=== PATIENT | male | born 1955 | race Caucasian/White ===

== ENCOUNTER 2020-11-05 09:16 | Emergency (ER) | payer OTHER, SELFPAY ==
--- NOTE | ~2020-11-05 | XR_ITS ---
EXAMINATION: XR chest 2V EXAM DATE: 11/05/2020 09:51 INDICATION: cough, sob x 3 days wheezing. TECHNIQUE: Frontal and lateral projections of the chest obtained and reviewed. There is no prior isaak dy for comparison. FINDINGS: Small amount of left basilar atelectasis. The lungs are otherwise clear. There are no ple ural effusions. The cardiomediastinal silhouette is within normal limits. There is no pneumothorax suspected. The bones and soft tissues are unremarkable. IMPRESSION: Small amount of left basilar atelectasis. Reviewed, dictated and finalized at location A.
[2020-11-05 09:30] VITALS: BP 148/85; PULSE 100; RESP 24; TEMP 36.7; O2SAT 100; O2SAT 99
--- NOTE | 2020-11-05 09:40 | ED.URI ---
HPI - URI/Sore Throat General Chief Complaint: Upper Respiratory Infection Stated Complaint: cough causing trouble breathing Time Seen by Provider: 11/05/20 10:00 Source: patient and RN notes reviewed Mode of arrival: ambulatory Limitations: no limitations History of Present Illness HPI Narrative: 65-year-old male presents with concern for ongoing cough, recent onset of shortness of breath. Reports he has been coughing for approximately 3 months. Reports the symptoms started 3 months ago with an upper respiratory infection which the upper respiratory symptoms have since resolved, however the cough has not. Reports within the last 3 days he noticed wheezing and shortness of breath. Reports he eases shortness of breath by sitting up at a table rather than lying in bed. Reports he has no shortness of breath when resting in a sitting position, however activity and certain positions lying flat caused him to be short of breath. He denies any history of lung problems, asthma, COPD. Reports he is a smoker, 1 pack/day for 30 years. He denies chest pain, diaphoresis, nausea, vomiting. Denies loss of sense of taste or smell. Denies any known Covid infection, influenza. MD elicited complaint: cough Related Data Allergies Allergy/AdvReac Type Severity Reaction Status Date / Time No Known Allergies Allergy Verified 11/05/20 09:44 Review of Systems Review of Systems: Narrative: CONSTITUTIONAL: Denies malaise, chills, sweats, or fever. EYES: Denies visual changes, redness, or discharge. ENT: Denies rhinorrhea, congestion, sinus pain, otalgia and sore throat. CARDIOVASCULAR: Denies chest pain, palpitations, or edema. RESPIRATORY: Reports cough, wheezing, dyspnea. GASTROINTESTINAL: Denies abdominal pain, nausea, vomiting, diarrhea SKIN: Denies rash or itching. MUSCULOSKELETAL: Denies myalgia. NEUROLOGIC: Denies headache. All systems reviewed & are unremarkable except as noted in HPI and below PMFSH Comments At time of signature, agree with nursing past medical, surgical, social and family history. There is no relevant family history pertinent to the presenting complaint Exam Narrative: Exam Narrative: GENERAL: Well-appearing, well-nourished, and in no acute distress. HEAD: Normocephalic EYES: PERRLA, conjunctivae clear ENT: Nares clear, turbinates, no discharge. Mucous membranes moist. TM pearly vieyra with dull light reflex bilaterally; no tragal tenderness. Oropharynx not erythematous without lesions. Tonsils not enlarged and without exudate, no drooling, no hoarseness, no trismus, uvula midline. NECK: Supple. No lymphadenopathy CHEST: Clear to auscultation, breath sounds equal. No wheezing, rhonchi, rales, or stridor. No respiratory distress, speaks in full sentences. HEART: Regular rate and rhythm. No murmur heard. SKIN: Warm, dry, no rash. NEURO: Alert and oriented x3. PSYCH: Normal mood and affect Course Course Emergency Course: Patient is aware of diagnosis, understands and agrees to treatment plan. Anticipatory guidance given. Patient agrees to follow-up as directed and is aware of reasons to seek care at the emergency department. Portions of this record may have been created with voice recognition software Vital Signs Vital signs: Vital Signs Temperature 98.1 F 11/05/20 09:30 Pulse Rate 100 11/05/20 09:30 Respiratory Rate 24 H 11/05/20 09:30 Blood Pressure 148/85 H 11/05/20 09:30 Pulse Oximetry 99 11/05/20 09:30 Temperature 98.1 F 11/05/20 09:57 Pulse Rate 100 11/05/20 09:57 Respiratory Rate 24 H 11/05/20 09:57 Blood Pressure 148/85 H 11/05/20 09:57 Pulse Oximetry 99 11/05/20 09:57 Reviewed. Pt has been instructed to follow up with his primary care provider within the next week regarding his elevated blood pressure today. MDM - URI/Sore Throat MDM Narrative Medical decision making narrative: Differential diagnosis considered: Taylor virus, strep pharyngitis, allergic rhinitis, upper respiratory
[2020-11-05 09:57] VITALS: BP 148/85; PULSE 100; RESP 24; TEMP 36.7; O2SAT 99
--- NOTE | 2020-11-05 10:34 | ECG_ITS ---
Measurements Intervals [place] Rate: 106 P: 65 [place]: 128 QRS: -13 QRSD: 90 T: 69 QT: 331 QTc: 440 Interpretive Statements SINUS TACHYCARDIA INCOMPLETE RIGHT BUNDLE BRANCH BLOCK BASELINE ARTIFACT- AVR, AVL, AVF, V4-V5 ABNORMAL ECG Electronically Signed On 11-05-2020 11:27:48 CDT by Eliseo Bennett D.O.
== END 2020-11-05 10:50 | disposition home or self-care (01) ==
PROVIDERS: Emergency Provider Nurse Practitioner
DX: R05 Cough (principal); R06.02 Shortness of breath; J98.11 Atelectasis; F17.219 Nicotine dependence, cigarettes, with unspecified nicotine-induced disorders
CPT/HCPCS: 71046; 93005; 99213; G0463

== ENCOUNTER 2020-11-19 09:19 | Emergency (ER) | payer OTHER, SELFPAY ==
--- NOTE | ~2020-11-19 | XR_ITS ---
EXAMINATION: XR chest 1V portable INDICATION: Shortness of breath and chills TECHNIQUE: Portable AP chest at 0955 hours COMPARISON: 11/05/2020 FINDINGS: There are minimal opacities of the lung bases and right midlung zone. There is no pleural e ffusion or pneumothorax. The cardiomediastinal silhouette is normal. The visualized osseous structure s are unremarkable. IMPRESSION: 1. Airspace opacities of the lung bases and right midlung zone which could reflect atelectasis versus pneumonia versus pulmonary edema. Reviewed, dictated and finalized at location B. IMPRESSION: 1. Airspace opacities of the lung bases and right midlung zone which could refl ect atelectasis versus pneumonia versus pulmonary edema.
[2020-11-19 09:27] VITALS: BP 132/75; PULSE 96; RESP 15; TEMP 36.8; O2SAT 94
--- NOTE | 2020-11-19 09:33 | ECG_ITS ---
Measurements Intervals [place] Rate: 98 P: 54 MD: 148 QRS: -4 QRSD: 102 T: 59 QT: 337 QTc: 432 Interpretive Statements SINUS RHYTHM INCOMPLETE RIGHT BUNDLE BRANCH BLOCK BASELINE ARTIFACT- I, II, III, AVR, AVL, AVF, V1, V3-V6 BORDERLINE ECG Electronically Signed On 11-19-2020 9:56:14 CDT by Eliseo Bennett D.O.
[2020-11-19 09:37] VITALS: PULSE 93
[2020-11-19 09:39] VITALS: O2SAT 96
[2020-11-19 09:43] LABS: Basophils Absolute Auto 0.1 K/mm3 (0.0-0.1); Basophils Percent Auto 0.5 % (0.2-1.2); Eosinophils Absolute Auto 2.1 K/mm3 (0-0.3); Eosinophils Percent Auto 18.9 % (0-4.4); Hematocrit 48.8 % (42.0-52.0); Hemoglobin 15.9 g/dL (14.0-18.0); Immature Granulocyte Absolute 0.03 K/mm3 (0.00-0.031); Immature Granulocyte Percent A 0.3 % (0-0.5); Lymphocytes Absolute Auto 1.76 K/mm3 (0.9-3.2); Mean Corpuscular HGB Conc 32.6 g/dl (32-36); Mean Corpuscular Hemoglobin 29.3 pg (26-34); Monocytes Absolute Auto 0.6 K/mm3 (0.1-0.6); Monocytes Percent Auto 5.6 % (2.6-8.5); Neutrophils Absolute Auto 6.5 K/mm3 (1.3-6.7); Neutrophils Percent Auto 58.7 % (45.5-73.1); Platelet Count Result 253 k/mm3 (150-375); Red Blood Count 5.42 M/mm3 (4.6-6.20); Red Cell Distribution Width 12.6 % (11.5-14.5)
[2020-11-19 09:56] LABS: Anion Gap 6 mmol/L (8-16); Blood Urea Nitrogen 16 mg/dL (9-20); Calcium 9.4 mg/dL (8.4-10.2); Carbon Dioxide 32 mmol/L (22-30); Chloride 102 mmol/L (98-107); Estimated CRCL calculation 64 ml/min; Estimated Glomerular Filt Rate > 60; Glucose 140 mg/dL (75-110); Potassium 4.8 mmol/L (3.4-5.0); Sodium 140 mmol/L (137-145)
[2020-11-19 09:57] LABS: INR 0.9; Prothrombin Time 12.5 Seconds (11.1-14.7)
[2020-11-19 09:58] LABS: Partial Thromboplastin Time 26.9 SECONDS (22.3-36.8)
--- NOTE | 2020-11-19 10:10 | ED.SOB ---
HPI - SOB/Dyspnea General Chief Complaint: Shortness of Breath/Dyspnea Stated Complaint: SOB Time Seen by Provider: 11/19/20 09:32 Source: patient Mode of arrival: ambulatory Limitations: no limitations History of Present Illness HPI Narrative: This is a 65-year-old male that presents the emergency department for cough x2 weeks. Associated with some chills yesterday. Reports he finished a steroid taper and a Z-Trevor from the urgent care at the beginning of symptoms. Cough is persisted. He has coughing attacks that are relieved with his albuterol inhaler. He was a longtime smoker, but has not smoked in the last couple of weeks. Denies fever, chest pain, shortness of breath. Related Data Allergies Allergy/AdvReac Type Severity Reaction Status Date / Time No Known Allergies Allergy Verified 11/19/20 09:38 Review of Systems Review of Systems: Narrative: CONSTITUTIONAL: Denies fever ENT: Denies congestion, sore throat CARDIOVASCULAR: Denies chest pain, or edema. RESPIRATORY: Reports cough. Denies dyspnea. All systems reviewed & are unremarkable except as noted in HPI and below PMFSH Social History Social History (Updated 11/19/20 @ 10:11 by Vani Bang PA-C) Smoking status: Former smoker Substance use: never Gender identity (if verbalized by the patient): Male Exam Narrative: Exam Narrative: GENERAL: Well-appearing, well-nourished, and in no acute distress. HEAD: Normocephalic, atraumatic. EYES: EOMI. ENT: Nares clear, no rhinorrhea or epistaxis. Mucous membranes moist. Oropharynx without tonsillar hypertrophy exudate or other lesions. Bilateral TMs pearly vieyra non-bulging NECK: Supple. No adenopathy or masses. CHEST: Clear to auscultation. No respiratory distress. No wheezes rales or rhonchi HEART: Regular rate and rhythm. No murmur heard. Normal peripheral pulses. EXTREMITIES: Normal range of motion. No edema. SKIN: Warm, dry, no rash. NEURO: No focal deficits. Alert and oriented x3. PSYCH: Normal mood and affect Course Vital Signs Vital signs: Vital Signs Temperature 98.3 F 11/19/20 09:27 Pulse Rate 96 11/19/20 09:27 Respiratory Rate 15 11/19/20 09:27 Blood Pressure 132/75 11/19/20 09:27 Pulse Oximetry 94 11/19/20 09:27 Temperature 98.3 F 11/19/20 09:27 Pulse Rate 87 11/19/20 10:35 Respiratory Rate 19 11/19/20 10:35 Blood Pressure 126/70 11/19/20 10:35 Pulse Oximetry 91 11/19/20 10:35 MDM - SOB/Dyspnea MDM Narrative Medical decision making narrative: Patient presents to the emergency department for cough x2 weeks. He is afebrile and nontoxic-appearing. Vitals are stable. Oxygen saturation is remained normal on room air. CBC with mild leukocytosis to 11. Metabolic panel without concerning findings. BNP is normal. Influenza screen was negative. SARS-CoV-2 was sent. Chest x-ray shows airspace opacities in the lung bases and right midlung zone. Patient was updated on case findings. Will be started on oral antibiotic for pneumonia pending Covid results. He has albuterol inhaler as needed for shortness of breath. He is to follow-up with primary care doctor. He was given warnings to return to the ER Lab Data Attestation: I reviewed the patient's lab results. Result diagrams: 11/19/20 09:37 11/19/20 09:37 Labs: Lab Results 11/19/20 11/19/20 11/19/20 Range/Units 09:37 09:37 09:37 WBC 11.0 H (4.5-10.0) K/mm3 RBC 5.42 (4.6-6.20) M/mm3 Hgb 15.9 (14.0-18.0) g/dL Hct 48.8 (42.0-52.0) % MCV 90.0 (80-100) fl MCH 29.3 (26-34) pg MCHC 32.6 (32-36) g/dl RDW 12.6 (11.5-14.5) % Plt Count 253 (150-375) k/mm3 MPV 9.0 (7.4-10.4) fl Immature Gran % (Auto) 0.3 (0-0.5) % Neut % (Auto) 58.7 (45.5-73.1) % Lymph % (Auto) 16.0 L (18.3-44.2) % [place] % (Auto) 5.6 (2.6-8.5) % Eos % (Auto) 18.9 H (0-4.4) % Baso % (Auto) 0.5 (0.2-1.2) % Lymph # (Auto) 1.76 (0.9-
[2020-11-19 10:25] LABS: Alanine Aminotransferase 33 U/L (4-50); Albumin Level 4.7 g/dL (3.5-5.1); Alkaline Phosphatase 62 U/L (38-126); Aspartate Amino Transferase 29 U/L (17-59); Bilirubin,Total 0.9 mg/dL (0.2-1.3); Lactate Dehydrogenase 416 U/L (313-618)
[2020-11-19 10:35] VITALS: BP 126/70; PULSE 87; RESP 19; O2SAT 91
[2020-11-19 11:11] LABS: NT Pro B Type Natriuretic Pept 29 PG/ML (5-100)
[2020-11-19 12:12] VITALS: BP 109/69; PULSE 93; RESP 22; O2SAT 93
[2020-11-19 20:45] LABS: SARS-CoV-2 RNA PCR Negative
== END 2020-11-19 12:14 | disposition home or self-care (01) ==
PROVIDERS: Physician Assistant; Emergency Provider Emergency Medicine; PCP Family Medicine
DX: Z20.822 Contact with and (suspected) exposure to COVID-19 (principal); J18.9 Pneumonia, unspecified organism
CPT/HCPCS: 36415; 71045; 80048; 80076; 82728; 83615; 83880; 85025; 85610; 85730; 87804; 93005; 99284; C9803; U0003; U0005

== ENCOUNTER 2021-10-22 18:04 | Emergency (ER) | payer MEDICARE, OTHER, SELFPAY ==
[2021-10-22 18:15] VITALS: BP 117/68; PULSE 104; RESP 16; TEMP 37.1; O2SAT 97
[2021-10-22 18:31] VITALS: BP 117/68; PULSE 104; RESP 16; TEMP 37.1; O2SAT 97
--- NOTE | 2021-10-22 18:49 | ED.WOUNDLAC ---
HPI - Wound/Laceration General Chief Complaint: Wound/Laceration Stated Complaint: Laceration to Left Finger Time Seen by Provider: 10/22/21 18:35 Source: patient, family, RN notes reviewed and old records reviewed Mode of arrival: ambulatory Limitations: no limitations History of Present Illness HPI narrative: 66 year old male presents to express care with friend with laceration to his left nunez proximal index finger which he cut with sharp scissors when he was trimming his dog at 1750 this evening. Patient has 4 cm width laceration with depth in center of approximately 1cm with acute bleeding noted. Patient has full mobility of his left index finger with strong circulation to his left hand and brisk capillary refill of his left index nail bed. Patient states that his tetanus is up to date. Related Data Home Medications Medication Instructions Recorded Confirmed budesonide-formoterol [Symbicort] 2 puff INHALATION Q12H 10/22/21 10/22/21 lorazepam 0.5 mg PO DAILY PRN 10/22/21 10/22/21 Allergies Allergy/AdvReac Type Severity Reaction Status Date / Time No Known Allergies Allergy Verified 10/22/21 18:26 Review of Systems Review of Systems: CONSTITUTIONAL: Denies fever, chills, or sweats. EYES: Denies visual changes, redness, or discharge. ENT: Denies rhinorrhea, congestion, sore throat, or otalgia. CARDIOVASCULAR: Denies chest pain, palpitations, or edema. RESPIRATORY: Denies cough or any acute dyspnea, does have some [place] at times has history of COPD GASTROINTESTINAL: Denies abdominal pain, nausea, vomiting, or diarrhea. GENITOURINARY: Denies dysuria or hematuria. SKIN: Denies rash or itching.4cm width laceration to nunez proximal dorsal index finger with moderate depth of wound at center MUSCULOSKELETAL: Denies back pain, joint pain, or myalgia. NEUROLOGIC: Denies headache, numbness, or weakness. PSYCHIATRIC: Positive for anxiety or depression. All systems reviewed & are unremarkable except as noted in HPI and below PMFSH Past Medical History Medical History (Updated 10/23/21 @ 15:52 by Sanjana Stewart NP) COPD (chronic obstructive pulmonary disease) Pneumonia Surgical History Surgical History (Updated 10/23/21 @ 16:08 by Sanjana Stewart NP) No history of previous surgery Social History Social History (Updated 10/23/21 @ 16:09 by Sanjana Stewart NP) Smoking packs per day: 1 Smoking cigarettes per day: 20.0 Years smoked: 40 Smoking pack-years: 40.00 Smoking status: Former smoker Alcohol intake: current Alcohol use details: rare social Substance use: never Gender identity (if verbalized by the patient): Male Comments At time of signature, agree with nursing past medical, surgical, social and family history. There is no relevant family history pertinent to the presenting complaint Exam Narrative: GENERAL: Well-appearing, well-nourished, and in no acute distress. HEAD: Normocephalic, atraumatic. EYES: PERRLA and EOMI. ENT: Nares clear, no rhinorrhea or epistaxis. Mucous membranes moist. NECK: Supple, no lymphadenopathy CHEST: Clear decreased to auscultation. No respiratory distress, SAO2 97% on room air HEART: Regular rate and rhythm. No murmur heard. Normal peripheral pulses. ABDOMEN: Soft, nontender, nondistended, normal active bowel sounds. EXTREMITIES: Normal range of motion. No edema. Full mobility of left index finger with brisk capillary refill of nail bed, color pink with strong left radial pulse. SKIN: Warm, dry, no rash.laceration to nunez proximal area of left index finger,, 4m width with approximate 1cm depth with active bleeding. NEURO: No focal deficits. Alert and oriented x3. Course Course Level of Care: Express Care Visit Vital Signs Vital signs: Vital Signs Temperature 37.1 C 10/22/21 18:15 Pulse Rate 104 H 10/22/21 18:15 Respiratory Rate 16 10/22/21 18:15 Blood Pressure 117/68 10/22/21 18:15 Pulse Oximetry 97 10/22/21 18:15 Tem
== END 2021-10-22 19:48 | disposition home or self-care (01) ==
PROVIDERS: Emergency Provider Registered Nurse; PCP Hospitalist
DX: S61.211A Laceration without foreign body of left index finger without damage to nail, initial encounter (principal); W27.2XXA Contact with scissors, initial encounter; J44.9 Chronic obstructive pulmonary disease, unspecified; Z87.891 Personal history of nicotine dependence
CPT/HCPCS: 12042; 99213; G0463